=== PATIENT | female | born 1980 | race Caucasian/White ===

== ENCOUNTER → 2016-07-11 | Outpatient (CLI) | payer MEDICARE, OTHER ==
[2016-07-12 14:09] LABS: HCV Qualitative Result DETECTED (Not detected)
== END | disposition home or self-care (01) ==
LOC: LABWHC1 13:52
PROVIDERS: ATTEND Physician Assistant
DX: B18.2 Chronic viral hepatitis C (principal)
CPT/HCPCS: 36415; 87522

== ENCOUNTER 2016-10-14 00:53 | Emergency (ER) | payer MEDICARE, OTHER ==
[2016-10-14 01:15] VITALS: BP 131/81; PULSE 89; RESP 20; TEMP 98.2
--- NOTE | 2016-10-14 02:04 | ED ---
General Adult HPI - General Chief complaint: Recheck/Abnormal Lab/Rx Stated complaint: med refill,heart condition Time Seen by Provider: 10/14/16 01:33 Source: patient, RN notes reviewed Mode of arrival: ambulatory Limitations: no limitations - History of Present Illness Initial comments: 36-year-old female presents to the emergency department with a chief complaint of needing medication refill of her Suboxone. Patient states that of her pills accidentally thrown away. Patient states that she does not get her refill until Saturday. Patient states that she is concerned about withdrawal symptoms. Patient denies any recent fever, chills, shortness of breath, chest pain, back pain, abdominal pain, nausea vomiting, numbness or tingling, dysuria or hematuria, constipation or diarrhea, headaches or visual changes, or any other current symptoms. - Related Data Home Medications Medication Instructions Recorded Confirmed Buprenorphine HCl/Naloxone HCl 1 tab PO TID 10/14/16 10/14/16 [Suboxone 8 mg-2 mg Sl Film] Allergies Allergy/AdvReac Type Severity Reaction Status Date / Time Iodinated Contrast Media - AdvReac Swelling Verified 10/14/16 01:16 Oral and [Iodinated Contrast Media - IV Dye] seafood AdvReac Swelling Uncoded 10/14/16 01:16 Review of Systems ROS Statement: Those systems with pertinent positive or pertinent negative responses have been documented in the HPI. ROS Other: All systems not noted in ROS Statement are negative. Past Medical History Past Medical History: Fibromyalgia, Rheumatoid Arthritis (RA) Additional Past Medical History / Comment(s): AAA History of Any Multi-Drug Resistant Organisms: None Reported Past Surgical History: Hysterectomy Past Psychological History: Depression Smoking Status: Current every day smoker Past Alcohol Use History: None Reported Past Drug Use History: None Reported General Exam Limitations: no limitations General appearance: alert, anxious Head exam: Present: atraumatic, normocephalic, normal inspection Respiratory exam: Present: normal lung sounds bilaterally. Absent: respiratory distress, wheezes, rales, rhonchi, stridor Cardiovascular Exam: Present: regular rate, normal rhythm, normal heart sounds. Absent: systolic murmur, diastolic murmur, rubs, gallop, clicks Neurological exam: Present: alert, oriented X3 Psychiatric exam: Present: normal affect, normal mood Skin exam: Present: warm, dry, intact, normal color. Absent: rash Course Vital Signs 10/14/16 01:13 Temperature 98.2 F Pulse Rate 89 Respiratory 20 Rate Blood Pressure 131/81 O2 Sat by Pulse 96 Oximetry Medical Decision Making - Medical Decision Making 36-year-old female presents emergency Department chief complaint of wanting a medication refill of her Suboxone. A maps report was done and is consistent with the patient's story of having refill earlier in the month however when reviewing old ER charts it does appear that about one year ago she did visit to different times for Suboxone withdrawals. This time we discussed that we do not carry Suboxone I cannot give her pills here. We discussed we do not feel this to the emergency department for outpatient feels. We discussed that she needs follow-up with her doctor. She was offered nausea medication as well as Catapres to help with her withdrawal symptoms. The patient proceeded to leave when she was informed that we would not be refilling her Suboxone without these prescriptions. Disposition Clinical Impression: Encounter for medication refill Disposition: HOME SELF-CARE Condition: Stable Instructions: Narcotic Pain Management (ED) Additional Instructions: Please use medication as discussed. Please follow up with family doctor if symptoms have not improved over the next two days. Please return to the emergency room if your symptoms increase or worsen or for any other concerns. Referrals: Nonstaff,Physician [Primary Care Provider] - 1-2 days Abisai Zarco MD [STAFF PHYSICIAN] - 1-2 days Time of Disposition: 02:04
== END 2016-10-14 02:05 | disposition home or self-care (01) ==
LOC: EC 00:53
DX: Z76.0 Encounter for issue of repeat prescription (principal); F17.200 Nicotine dependence, unspecified, uncomplicated; Z79.891 Long term (current) use of opiate analgesic; Z91.013 Allergy to seafood; Z91.041 Radiographic dye allergy status
CPT/HCPCS: 99283

== ENCOUNTER 2017-02-16 21:09 | Emergency (ER) | payer MEDICARE, OTHER ==
[2017-02-16 21:16] VITALS: TEMP 97.9
[2017-02-16] MEDS ORDERED: ONDANSETRON 4 MG/2 ML VIAL IVP STA (21:19)
[2017-02-16] MEDS ORDERED: SODIUM CHLORIDE 0.9% 1,000 ML IV STA ×2 (21:19)
[2017-02-16] MEDS ORDERED: RX INFO: IV CONTRAST WAS GIVEN 1 EACH MISC MISCELLANE PRN ×2 (21:19→21:22)
[2017-02-16] MEDS ORDERED: MORPHINE SULFATE 4 MG/ML SYRINGE IV STA (21:19)
--- NOTE | 2017-02-16 21:22 | ED ---
General Adult HPI - General Chief complaint: Chest Pain Stated complaint: Chest Pain Time Seen by Provider: 02/16/17 21:18 Source: patient, RN notes reviewed, old records reviewed Mode of arrival: ambulatory Limitations: no limitations - History of Present Illness Initial comments: This is a 36-year-old female here for bowel pain, severe bowel pain, history of AAA, lays on her monitor at this time. Patient also complains of thoracic chest pain, history of thoracic abdominal aortic aneurysm per patient with dissection. History of significant arterial disease. Insulin. Patient's pain started getting worse. No fevers cough congestion or shortness of breath no recent change in medications. Patient is very anxious regarding this. - Related Data Home Medications Medication Instructions Recorded Confirmed buPROPion [Wellbutrin] 300 mg PO DAILY 02/16/17 02/16/17 Allergies Allergy/AdvReac Type Severity Reaction Status Date / Time Iodinated Contrast- Oral and AdvReac Swelling Verified 02/16/17 21:16 IV Dye [Iodinated Contrast Media - IV Dye] seafood AdvReac Swelling Uncoded 02/16/17 21:16 Review of Systems ROS Statement: Those systems with pertinent positive or pertinent negative responses have been documented in the HPI. ROS Other: All systems not noted in ROS Statement are negative. Past Medical History Past Medical History: Fibromyalgia, Rheumatoid Arthritis (RA) Additional Past Medical History / Comment(s): AAA History of Any Multi-Drug Resistant Organisms: None Reported Past Surgical History: Hysterectomy Past Psychological History: Depression Smoking Status: Current every day smoker Past Alcohol Use History: None Reported Past Drug Use History: None Reported General Exam Limitations: no limitations General appearance: alert, in no apparent distress, anxious Head exam: Present: atraumatic, normocephalic, normal inspection Eye exam: Present: normal appearance, PERRL, EOMI. Absent: scleral icterus, conjunctival injection, periorbital swelling ENT exam: Present: normal exam, mucous membranes moist Neck exam: Present: normal inspection. Absent: tenderness, meningismus, lymphadenopathy Respiratory exam: Present: normal lung sounds bilaterally. Absent: respiratory distress, wheezes, rales, rhonchi, stridor Cardiovascular Exam: Present: regular rate, normal rhythm, normal heart sounds. Absent: systolic murmur, diastolic murmur, rubs, gallop, clicks GI/Abdominal exam: Present: soft, normal bowel sounds. Absent: distended, tenderness, guarding, rebound, rigid Extremities exam: Present: normal inspection, full ROM, normal capillary refill. Absent: tenderness, pedal edema, joint swelling, calf tenderness Back exam: Present: normal inspection Neurological exam: Present: alert, oriented X3, CN II-XII intact Psychiatric exam: Present: normal affect, normal mood Skin exam: Present: warm, dry, intact, normal color. Absent: rash Course Vital Signs 02/16/17 02/16/17 21:12 22:29 Temperature 97.9 F Pulse Rate 80 94 Respiratory 22 16 Rate Blood Pressure 148/78 126/73 O2 Sat by Pulse 100 100 Oximetry - Reevaluation(s) Reevaluation #1: 02/16/17 23:47 Medical medical history as reviewed EKG Findings - EKG Comments: EKG Findings:: EKG shows normal sinus at a rate of 83, HI 158, QRS 86, [id number] Medical Decision Making - Medical Decision Making 30 mL by mouth chest pain, history of dissection, CTA negative chest pain or dissection, patient has no pain control. Patient can be discharged - Lab Data Result diagrams: 02/16/17 21:39 02/16/17 21:39 Lab Results 02/16/17 02/16/17 02/16/17 Range/Units 21:39 21:39 21:39 WBC 6.1 (3.8-10.6) k/uL RBC 4.89 (3.80-5.40) m/uL Hgb 15.1 (11.4-16.0) gm/dL Hct 43.9 (34.0-46.0) % MCV 89.9 (80.0-100.0) fL MCH 30.8 (25.0-35.0) pg MCHC 34.3 (31.0-37.0) g/dL RDW 13.5 (11.5-15.5) % Plt Count 236 (150-450) k/uL Neutrophils % 51 % Lymphocytes % 39 % Monocytes % 6 % Eosinophils % 2 % Basophils % 1 % Neutrophils # 3.1 (1.3-7.7) k/uL Lymphocytes # 2.3 (1.0-4.8) k/uL Monocytes # 0.4 (0-1.0) k/uL Eosinophils # 0.1 (0-0.7) k/uL Basophils # 0.0 (0-0.2) k/uL PT 10.2 (9.0-12.0) sec INR 1.0 (<1.2) APTT 19.2 L (22.0-30.0) sec Sodium 139 (137-145) mmol/L Potassium 4.3 (3.5-5.1) mmol/L Chloride 105 (98-107) mmol/L Carbon Dioxide 24 (22-30) mmol/L Anion Gap 10 mmol/L BUN 14 (7-17) mg/dL Creatinine 0.80 (0.52-1.04) mg/dL Est GFR (MDRD) Af Amer >60 (>60 ml/min/1.73 sqM) Est GFR (MDRD) Non-Af >60 (>60 ml/min/1.73 sqM) Glucose 94 (74-99) mg/dL Calcium 9.5 (8.4-10.2) mg/dL Phosphorus 3.5 (2.5-4.5) mg/dL Magnesium 2.1 (1.6-2.3) mg/dL Total Bilirubin 0.7 (0.2-1.3) mg/dL AST 27 (14-36) U/L ALT 41 (9-52) U/L Alkaline Phosphatase 74 (38-126) U/L Total Creatine Kinase (30-135) U/L CK-MB (CK-2) (0.0-2.4) ng/mL CK-MB (CK-2) Rel Index Troponin I (0.000-0.034) ng/mL Total Protein 7.3 (6.3-8.2) g/dL Albumin 4.4 (3.5-5.0) g/dL Lipase 33 (23-300) U/L 02/16/17 02/16/17 Range/Units 21:39 21:39 WBC (3.8-10.6) k/uL RBC (3.80-5.40) m/uL Hgb (11.4-16.0) gm/dL Hct (34.0-46.0) % MCV (80.0-100.0) fL MCH (25.0-35.0) pg MCHC (31.0-37.0) g/dL RDW (11.5-15.5) % Plt Count (150-450) k/uL Neutrophils % % Lymphocytes % % Monocytes % % Eosinophils % % Basophils % % Neutrophils # (1.3-7.7) k/uL Lymphocytes # (1.0-4.8) k/uL Monocytes # (0-1.0) k/uL Eosinophils # (0-0.7) k/uL Basophils # (0-0.2) k/uL PT (9.0-12.0) sec INR (<1.2) APTT (22.0-30.0) sec Sodium (137-145) mmol/L Potassium (3.5-5.1) mmol/L Chloride (98-107) mmol/L Carbon Dioxide (22-30) mmol/L Anion Gap mmol/L BUN (7-17) mg/dL Creatinine (0.52-1.04) mg/dL Est GFR (MDRD) Af Amer (>60 ml/min/1.73 sqM) Est GFR (MDRD) Non-Af (>60 ml/min/1.73 sqM) Glucose (74-99) mg/dL Calcium (8.4-10.2) mg/dL Phosphorus (2.5-4.5) mg/dL Magnesium (1.6-2.3) mg/dL Total Bilirubin (0.2-1.3) mg/dL AST (14-36) U/L ALT (9-52) U/L Alkaline Phosphatase (38-126) U/L Total Creatine Kinase 65 (30-135) U/L CK-MB (CK-2) 1.4 (0.0-2.4) ng/mL CK-MB (CK-2) Rel Index 2.2 Troponin I <0.012 (0.000-0.034) ng/mL Total Protein (6.3-8.2) g/dL Albumin (3.5-5.0) g/dL Lipase (23-300) U/L - Radiology Data Radiology results: report reviewed (CTA angiogram negative for new dissection or change), image reviewed Disposition Clinical Impression: Chest pain Disposition: HOME SELF-CARE Condition: Good Instructions: Chest Pain (ED) Referrals: Nonstaff,Physician [Primary Care Provider] - 1-2 days
[2017-02-16 21:53] LABS: Basophils % (A) 1 %; CH 32.2; CHCM 35.9; Eosinophils # (A) 0.1 k/uL (0-0.7); Eosinophils % (A) 2 %; HCT 43.9 % (34.0-46.0); HDW 2.54; HGB 15.1 gm/dL (11.4-16.0); Luc # (Auto) 0.16; Luc % (Auto) 3; Lymphocytes # (A) 2.3 k/uL (1.0-4.8); Lymphocytes % (A) 39 %; MCH 30.8 pg (25.0-35.0); MCHC 34.3 g/dL (31.0-37.0); MCV 89.9 fL (80.0-100.0); Mean Platelet Volume 7.5; Monocytes # (A) 0.4 k/uL (0-1.0); Monocytes % (A) 6 %; Neutrophils # (A) 3.1 k/uL (1.3-7.7); Neutrophils % (A) 51 %; RBC 4.89 m/uL (3.80-5.40); RDW 13.5 % (11.5-15.5); WBC 6.1 k/uL (3.8-10.6)
[2017-02-16] MEDS ORDERED: methylPREDNISolone SOD SUCCI 125 MG/2 ML VIAL IV STA (21:54)
[2017-02-16] MEDS ORDERED: FAMOTIDINE 20 MG/2 ML VIAL IV STA (21:54)
[2017-02-16] MEDS ORDERED: diphenhydrAMINE 50 MG/ML 1 ML VIAL IVP STA ×2 (21:54→22:19)
[2017-02-16 22:02] LABS: ALT 41 U/L (9-52); AST 27 U/L (14-36); Alkaline Phosphatase 74 U/L (38-126); Anion Gap 10 mmol/L; Blood Urea Nitrogen 14 mg/dL (7-17); Calcium 9.5 mg/dL (8.4-10.2); Carbon Dioxide 24 mmol/L (22-30); Chloride 105 mmol/L (98-107); Glucose 94 mg/dL (74-99); Magnesium 2.1 mg/dL (1.6-2.3); Non-African American GFR(MDRD) >60 (>60 ml/min/1.73 sqM); Phosphorous 3.5 mg/dL (2.5-4.5); Potassium 4.3 mmol/L (3.5-5.1); Sodium 139 mmol/L (137-145); Total Bilirubin 0.7 mg/dL (0.2-1.3); Total Protein 7.3 g/dL (6.3-8.2)
[2017-02-16] MEDS ORDERED: HYDROmorphone 1 MG/ML 1 ML SYRINGE IVP STA ×2 (22:19→23:53)
[2017-02-16] MEDS ORDERED: LORazepam 2 MG/ML SYRINGE IV STA (22:19)
[2017-02-16 22:20] LABS: Prothrombin Time 10.2 sec (9.0-12.0)
[2017-02-16 22:29] LABS: Partial Thromboplastin Time 19.2 sec (22.0-30.0)
[2017-02-16 22:30] VITALS: RESP 16
[2017-02-16 22:49] LABS: Creatine Kinase MB 1.4 ng/mL (0.0-2.4)
--- NOTE | 2017-02-16 23:41 | CT ---
EXAM: CT Angiography Chest With Intravenous Contrast CT Angiography Abdomen With Intravenous Contrast CLINICAL HISTORY: Pain TECHNIQUE: Axial computed tomographic angiography images of the chest and abdomen with intravenous contrast using CT angiography protocol. CTDI is 9.3, 9. 0, 165.7 mGy and DLP is 1056.6 mGy-cm. This CT exam was performed using one or more of the following dose reduction techniques: automated exposure control, adjustment of the mA and/or kV according to patient size, and/or use of iterative reconstruction technique. MIP reconstructed images were created and reviewed. COMPARISON: 05/14/2016 FINDINGS: VASCULATURE: Aorta: Stable aneurysmal dilatation of the descending thoracic aorta, measuring up to 3.9 cm (6-41). Stable [place] type B thoracic aortic dissection arising from the distal thoracic aorta at the level of the T10- T11 intervertebral disc. Stable thoracic aortic dissection with opacification of the true and false lumens. Pulmonary arteries: Unremarkable as visualized. No pulmonary embolism is identified. Great vessels of aortic arch: No acute findings. No dissection. No occlusion or significant stenosis. Celiac trunk and mesenteric arteries: No acute findings. No occlusion or significant stenosis. Renal arteries: No acute findings. No occlusion or significant stenosis. Iliac arteries: Celiac, superior mesenteric, inferior mesenteric, bilateral renal, and bilateral common iliac arteries are patent. No occlusion or significant stenosis. CHEST: Lungs: Unremarkable. No mass. No consolidation. Pleural space: Unremarkable. No significant effusion. No pneumothorax. Heart: Unremarkable. No cardiomegaly. No significant pericardial effusion. ABDOMEN: Liver: Unremarkable. No mass. Gallbladder and bile ducts: Unremarkable. No calcified stones. No ductal dilation. Pancreas: Unremarkable. No ductal dilation. Spleen: Unremarkable. No splenomegaly. Adrenals: Unremarkable. Kidneys and ureters: Unremarkable. Stomach and bowel: Unremarkable. No obstruction. The appendix is not identified. Intraperitoneal space: Unremarkable. No significant fluid collection. No free air. CHEST and ABDOMEN: Bones/joints: No acute fracture. Soft tissues: Small fat-containing periumbilical hernia. Lymph nodes: Unremarkable. No enlarged lymph nodes. IMPRESSION: Stable aortic aneurysm or dissection. No acute CT findings to account for the patient's pain.
[2017-02-16] MEDS ORDERED: DIAZEPAM 5 MG/ML 2 ML SYRINGE IVP STA (23:53)
[2017-02-17 00:07] VITALS: BP 143/96; PULSE 90
== END 2017-02-17 00:40 | disposition home or self-care (01) ==
LOC: EC 21:09
DX: R07.89 Other chest pain (principal); I71.4 Abdominal aortic aneurysm, without rupture; F32.9 Major depressive disorder, single episode, unspecified; F41.9 Anxiety disorder, unspecified; F17.200 Nicotine dependence, unspecified, uncomplicated; Z79.899 Other long term (current) drug therapy; Z91.041 Radiographic dye allergy status; Z91.013 Allergy to seafood
CPT/HCPCS: 36415; 93005; 80053; 82550; 82553; 83690; 83735; 84100; 84484; 85025; 85610; 85730; 75635; 71275; 99285; 96374; 96375 ×7; 96376; 96361 ×2; J2060; J2270; J1200; J2930; J3360; Q9967; J2405; J1170 ×2

== ENCOUNTER → 2017-07-09 | Outpatient (CLI) | payer MEDICARE, OTHER ==
[2017-07-10 05:43] LABS: Herpes simplex I and/or II IgM 0.19 INDEX (<=0.90); Herpes simplex IgG I Ab <0.01 (< or = 0.90); Herpes simplex IgG II Ab 0.09 (< or = 0.90)
== END | disposition home or self-care (01) ==
LOC: LABWHC1 16:34
PROVIDERS: ATTEND Family Medicine
DX: N76.0 Acute vaginitis (principal); B00.9 Herpesviral infection, unspecified
CPT/HCPCS: 36415; 86694; 86695; 86696

== ENCOUNTER 2018-05-28 13:33 | Emergency (ER) | payer MEDICARE, OTHER ==
[2018-05-28] MEDS ORDERED: SODIUM CHLORIDE 0.9% 1,000 ML IV STA (13:58)
[2018-05-28] MEDS ORDERED: FAMOTIDINE 20 MG/2 ML VIAL IV STA (14:00)
[2018-05-28] MEDS ORDERED: diphenhydrAMINE 50 MG/ML 1 ML VIAL IVP STA (14:05)
[2018-05-28] MEDS ORDERED: methylPREDNISolone SOD SUCCI 125 MG/2 ML VIAL IV STA (14:05)
--- NOTE | 2018-05-28 15:00 | ED ---
General Adult HPI - General Chief complaint: Abdominal Pain Stated complaint: FLU LIKE SYMPTOMS Source: patient, EMS, RN notes reviewed, old records reviewed Mode of arrival: EMS Limitations: no limitations - History of Present Illness Initial comments: 37-year-old female patient past medical history of rheumatoid arthritis, hepatitis C, abdominal aneurysm presents to ED with epigastric pain radiating to back. Patient states that this began this morning. Patient describes the pain as a pressure sensation. Patient also complains of nausea without emesis. Patient complains of dizziness. Patient denies chest pain shortness of breath. Patient denies dysuria. Patient denies all her symptoms. Systemic: Pt denies fatigue, myalgia, fever/chills, rash. Pt denies weakness, night sweats, weight loss. Neuro: Pt denies headache, visual disturbances, syncope or pre-syncope. HEENT: Pt denies ocular discharge or irritation, otalgia, rhinorrhea, pharyngitis or notable lymphadenopathy. Cardiopulmonary: Pt denies chest pain, SOB, heart palpitations, dyspnea on exertion. : Pt denies dysuria, burning w/ urination, frequency/urgency. Denies new onset urinary or bowel incontinence. MSK: Pt denies myalgia, loss of strength or function in extremities. Neuro: Pt denies new onset weakness, paresthesias. - Related Data Home Medications Medication Instructions Recorded Confirmed buPROPion [Wellbutrin] 300 mg PO DAILY 02/16/17 05/28/18 Ibuprofen [Motrin Ib] 400 mg PO Q6H PRN 05/28/18 05/28/18 Previous Rx's Medication Instructions Recorded Omeprazole 20 mg PO DAILY #20 capsule. 05/28/18 Ondansetron [Zofran] 4 mg PO Q8HR PRN #15 tab 05/28/18 Allergies Allergy/AdvReac Type Severity Reaction Status Date / Time Iodinated Contrast- Oral and AdvReac Swelling Verified 05/28/18 13:59 IV Dye [Iodinated Contrast Media - IV Dye] seafood AdvReac Swelling Uncoded 05/28/18 13:45 Review of Systems ROS Statement: Those systems with pertinent positive or pertinent negative responses have been documented in the HPI. ROS Other: All systems not noted in ROS Statement are negative. Past Medical History Past Medical History: Fibromyalgia, Rheumatoid Arthritis (RA) Additional Past Medical History / Comment(s): AAA History of Any Multi-Drug Resistant Organisms: None Reported Past Surgical History: Hysterectomy Past Psychological History: Depression Smoking Status: Current every day smoker Past Alcohol Use History: None Reported Past Drug Use History: None Reported General Exam - General Exam Comments Initial Comments: Constitutional: NAD, AOX3, Pt has pleasant affect. HEENT: NC/AT, trachea midline, neck supple, no lymphadenopathy. Posterior pharynx non erythematous, without exudates. External ears appear normal, without discharge. Mucous membranes moist. Eyes PERRLA, EOM intact. There is no scleral icterus. No pallor noted. Cardiopulmonary: RRR, no murmurs, rubs or gallops, no JVD noted. Lungs CTAB in anterior and posterior donovan. No peripheral edema. Abdominal exam: Abdomen soft and non-distended. Abdomen mildly tender to palpation epigastric region. No masses noted. Equal pulses.. Bowel sounds active in LLQ. No hepatosplenomegaly. No ecchymosis Neuro: CN II-XII grossly intact. No nuchal rigidity. MSK: No posterior calf tenderness bilaterally, homans sign negative bilaterally. Posterior tibialis, dorsalis and radial pulse +2 bilaterally - pulses equal. Sensation intact in upper and lower extremities. Full active ROM in upper and lower extremities, 5/5 strength. Limitations: no limitations Course Vital Signs 05/28/18 05/28/18 05/28/18 13:40 14:20 14:26 Temperature 99.2 F Pulse Rate 72 86 85 Respiratory 18 18 18 Rate Blood Pressure 139/70 139/70 120/71 O2 Sat by Pulse 99 98 Oximetry 05/28/18 05/28/18 05/28/18 14:27 14:40 15:00 Temperature Pulse Rate 104 H 76 75 Respiratory 18 18 18 Rate Blood Pressure 98/71 98/71 107/77 O2 Sat by Pulse 100 98 99 Oximetry 05/28/18 05/28/18 05/28/18 15:20 16:00 16:20 Temperature Pulse Rate 67 66 Respiratory 18 16 Rate Blood Pressure 129/95 101/67 111/67 O2 Sat by Pulse 99 96 Oximetry 05/28/18 18:22 Temperature 99.7 F H Pulse Rate 76 Respiratory 18 Rate Blood Pressure 101/64 O2 Sat by Pulse 99 Oximetry Medical Decision Making - Medical Decision Making 37-year-old female patient past medical history of rheumatoid arthritis, hepatitis C, abdominal aneurysm presents to ED with epigastric pain radiating to back. Patient states that this began this morning. Patient describes the pain as a pressure sensation. Patient also complains of nausea without emesis. Patient complains of dizziness. Patient denies all other symptoms. Vital signs stable upon presenting to ED. Physical exam revealed abdomen tender in epigastric region. No masses noted, no pulsatile mass. Equal pulses proximal and distal. Laboratory investigations revealed non-impressive CBC, CMP , coagulation studies. Troponin was negative, lactic acid was within normal limits. Patient had tubal ligation. Aorta CT displayed stable chronic descending thoracic abdominal aortic dissection, no acute change. Chest x-ray displayed no acute process. EKG not concerning for acute ischemia. Patient diagnosed gastritis. Patient treated with Omeprazole and Zofran. Patient to follow-up primary care provider in 1-2 days for continued evaluation. Pt given strict return precautions. Patient to return to ED if any new signs or symptoms develop. Case discussed in depth with Dr. Crowder. - Lab Data Result diagrams: 05/28/18 15:02 05/28/18 15:02 Lab Results 05/28/18 05/28/18 05/28/18 Range/Units 15:02 15:02 15:02 WBC 5.5 (3.8-10.6) k/uL RBC 4.71 (3.80-5.40) m/uL Hgb 13.9 (11.4-16.0) gm/dL Hct 41.9 (34.0-46.0) % MCV 89.0 (80.0-100.0) fL MCH 29.6 (25.0-35.0) pg MCHC 33.2 (31.0-37.0) g/dL RDW 12.5 (11.5-15.5) % Plt Count 240 (150-450) k/uL Neutrophils % 55 % Lymphocytes % 31 % Monocytes % 6 % Eosinophils % 5 % Basophils % 1 % Neutrophils # 3.0 (1.3-7.7) k/uL Lymphocytes # 1.7 (1.0-4.8) k/uL Monocytes # 0.3 (0-1.0) k/uL Eosinophils # 0.3 (0-0.7) k/uL Basophils # 0.0 (0-0.2) k/uL PT 9.9 (9.0-12.0) sec INR 0.9 (<1.2) APTT 19.1 L (22.0-30.0) sec Sodium 138 (137-145) mmol/L Potassium 4.3 (3.5-5.1) mmol/L Chloride 107 (98-107) mmol/L Carbon Dioxide 26 (22-30) mmol/L Anion Gap 5 mmol/L BUN 15 (7-17) mg/dL Creatinine 0.71 (0.52-1.04) mg/dL Est GFR (CKD-EPI)AfAm >90 (>60 ml/min/1.73 sqM) Est GFR (CKD-EPI)NonAf >90 (>60 ml/min/1.73 sqM) Glucose 87 (74-99) mg/dL Plasma Lactic Acid Bertin (0.7-2.0) mmol/L Calcium 9.0 (8.4-10.2) mg/dL Total Bilirubin 0.6 (0.2-1.3) mg/dL AST 25 (14-36) U/L ALT 28 (9-52) U/L Alkaline Phosphatase 55 (38-126) U/L Troponin I (0.000-0.034) ng/mL Total Protein 6.5 (6.3-8.2) g/dL Albumin 3.6 (3.5-5.0) g/dL Amylase 31 (30-110) U/L Lipase 30 (23-300) U/L 05/28/18 05/28/18 Range/Units 15:02 16:12 WBC (3.8-10.6) k/uL RBC (3.80-5.40) m/uL Hgb (11.4-16.0) gm/dL Hct (34.0-46.0) % MCV (80.0-100.0) fL MCH (25.0-35.0) pg MCHC (31.0-37.0) g/dL RDW (11.5-15.5) % Plt Count (150-450) k/uL Neutrophils % % Lymphocytes % % Monocytes % % Eosinophils % % Basophils % % Neutrophils # (1.3-7.7) k/uL Lymphocytes # (1.0-4.8) k/uL Monocytes # (0-1.0) k/uL Eosinophils # (0-0.7) k/uL Basophils # (0-0.2) k/uL PT (9.0-12.0) sec INR (<1.2) APTT (22.0-30.0) sec Sodium (137-145) mmol/L Potassium (3.5-5.1) mmol/L Chloride (98-107) mmol/L Carbon Dioxide (22-30) mmol/L Anion Gap mmol/L BUN (7-17) mg/dL Creatinine (0.52-1.04) mg/dL Est GFR (CKD-EPI)AfAm (>60 ml/min/1.73 sqM) Est GFR (CKD-EPI)NonAf (>60 ml/min/1.73 sqM) Glucose (74-99) mg/dL Plasma Lactic Acid Bertin 0.7 (0.7-2.0) mmol/L Calcium (8.4-10.2) mg/dL Total Bilirubin (0.2-1.3) mg/dL AST (14-36) U/L ALT (9-52) U/L Alkaline Phosphatase (38-126) U/L Troponin I <0.012 (0.000-0.034) ng/mL Total Protein (6.3-8.2) g/dL Albumin (3.5-5.0) g/dL Amylase (30-110) U/L Lipase (23-300) U/L Disposition Clinical Impression: Gastritis Disposition: HOME SELF-CARE Condition: Good Instructions: Gastritis (ED) Additional Instructions: Patient to adhere to previously discussed treatment plan and will take medication(s) as directed. Patient to follow up with PCP in 1-2 days. Patient to return to ED if symptoms do not improve. Prescriptions: Omeprazole 20 mg PO DAILY #20 capsule. Ondansetron [Zofran] 4 mg PO Q8HR PRN #15 tab PRN Reason: Nausea Is patient prescribed a controlled substance at d/c from ED?: No Referrals: Nonstaff,Physician [Primary Care Provider] - 1-2 days Time of Disposition: 17:43 Decision Time: 17:44
[2018-05-28 15:14] LABS: Basophils % (A) 1 %; Eosinophils # (A) 0.3 k/uL (0-0.7); Eosinophils % (A) 5 %; HCT 41.9 % (34.0-46.0); HGB 13.9 gm/dL (11.4-16.0); Lymphocytes # (A) 1.7 k/uL (1.0-4.8); Lymphocytes % (A) 31 %; MCH 29.6 pg (25.0-35.0); MCHC 33.2 g/dL (31.0-37.0); Mean Platelet Volume 6.5; Monocytes # (A) 0.3 k/uL (0-1.0); Monocytes % (A) 6 %; Neutrophils % (A) 55 %; Platelet Count 240 k/uL (150-450); RBC 4.71 m/uL (3.80-5.40); RDW 12.5 % (11.5-15.5); WBC 5.5 k/uL (3.8-10.6)
[2018-05-28 15:25] LABS: ALT 28 U/L (9-52); AST 25 U/L (14-36); Albumin 3.6 g/dL (3.5-5.0); Alkaline Phosphatase 55 U/L (38-126); Amylase 31 U/L (30-110); Anion Gap 5 mmol/L; Blood Urea Nitrogen 15 mg/dL (7-17); Carbon Dioxide 26 mmol/L (22-30); Chloride 107 mmol/L (98-107); Glucose 87 mg/dL (74-99); Lipase 30 U/L (23-300); Potassium 4.3 mmol/L (3.5-5.1); Sodium 138 mmol/L (137-145); Total Bilirubin 0.6 mg/dL (0.2-1.3); Total Protein 6.5 g/dL (6.3-8.2)
[2018-05-28 15:29] LABS: INR 0.9 (<1.2); Prothrombin Time 9.9 sec (9.0-12.0)
[2018-05-28 15:30] LABS: Partial Thromboplastin Time 19.1 sec (22.0-30.0)
[2018-05-28] MEDS ORDERED: MORPHINE SULFATE 4 MG/ML SYRINGE IV STA (15:50)
[2018-05-28] MEDS ORDERED: ONDANSETRON 4 MG/2 ML VIAL IVP STA (15:51)
--- NOTE | 2018-05-28 16:06 | CT ---
EXAMINATION TYPE: CT angio thor/abd pel aorta DATE OF EXAM: 05/28/2018 COMPARISON: 02/16/2017 HISTORY: Mid abdominal pain, history of AAA. CT DLP: 2580.4 mGycm. Automated Exposure Control for Dose Reduction was Utilized. CONTRAST: CT scan of the thorax, abdomen and pelvis is performed without and with IV Contrast, patient injected with 100 mL of Isovue 370. FINDINGS: LUNGS: The lungs are grossly clear, there is no concerning parenchymal mass or nodule identified. T here is no pleural effusion or pneumothorax seen. The tracheobronchial tree is patent. MEDIASTINUM: The unenhanced images demonstrate no evidence of intramural hematoma. When measured in a similar location there is overall stable size of the descending thoracic aortic aneurysm measuring a pproximately 3.9 x 4.2 cm. Descending thoracic dissection begins just prior to the diaphragmatic hiat us. The false lumen appears larger and true lumen feeds the celiac, superior mesenteric, and right re nal arteries. False lumen is opacified feeding the left renal artery. Above the level of the renal ar teries the aneurysm some measures 3.2 cm, also similar to the prior. Vascular flow is maintained with in the celiac and SMA as well as of the DEANDRE. There no greater than 1 cm hilar or mediastinal lymph nodes. No pericardial effusion is seen. LIVER/GB: No significant abnormality is appreciated. No cholelithiasis. PANCREAS: No significant abnormality is seen. SPLEEN: The spleen is elongated in longitudinal dimension measuring 13.1 cm however is not enlarged i n craniocaudal dimension ADRENALS: No significant abnormality is seen. KIDNEYS: No significant abnormality is seen. BOWEL: There is a moderate amount retained colonic stool. No dilated large or small bowel. Appendix i s not clearly identified however no right lower quadrant fat stranding changes are seen. Appendix cou ld be surgically absent as there are surgical clips near the cecum. LYMPH NODES: No greater than 1cm abdominal or pelvic lymph nodes are appreciated. OSSEOUS STRUCTURES: No significant abnormality is seen. OTHER: Subcentimeter fat filled umbilical hernia is present. IMPRESSION: Stable chronic descending thoracic and abdominal aortic dissection terminating just befor e the aortoiliac bifurcation and stable thoracic and abdominal aortic aneurysm.
--- NOTE | 2018-05-28 16:40 | XR ---
EXAMINATION TYPE: XR chest 2V DATE OF EXAM: 05/28/2018 COMPARISON: 05/14/2016 HISTORY: Abdominal pain TECHNIQUE: Frontal and lateral views of the chest are obtained. FINDINGS: There is no heart failure nor confluent pneumonic infiltrate. Heart size is normal. Costop hrenic angles are fairly clear. There are chest leads. There are surgical clips over the mediastinum. IMPRESSION: No active cardiopulmonary disease. No change.
[2018-05-28 18:22] VITALS: BP 101/64; PULSE 76; RESP 18; TEMP 99.7
== END 2018-05-28 18:36 | disposition home or self-care (01) ==
LOC: EC 13:33
DX: K29.70 Gastritis, unspecified, without bleeding (principal); R42 Dizziness and giddiness; M06.9 Rheumatoid arthritis, unspecified; F32.9 Major depressive disorder, single episode, unspecified; F17.200 Nicotine dependence, unspecified, uncomplicated; Z79.899 Other long term (current) drug therapy; Z91.041 Radiographic dye allergy status; Z91.013 Allergy to seafood
CPT/HCPCS: 96375 ×5; 96361 ×2; 96374 ×2; 99285 ×2; 36415; 93005; 36569; 76937; 80053; 82150; 83605; 83690; 84484; 85025; 85610; 85730; 71046; 71275; 74174; J2270; J1200; J2930; J2405; Q9967

== ENCOUNTER → 2018-05-28 | Day surgery (SDC) | payer MEDICARE, OTHER | LOC: CATHCVL 11:59 | DX: Z45.2 Encounter for adjustment and management of vascular access device (principal) | CPT/HCPCS: 36569; 76937 ==

== ENCOUNTER 2018-06-24 17:21 | Emergency (ER) | payer MEDICARE, OTHER ==
[2018-06-24] MEDS ORDERED: ACETAMINOPHEN TAB 325 MG TAB PO STA (17:43)
[2018-06-24] MEDS ORDERED: diphenhydrAMINE 50 MG/ML 1 ML VIAL IVP STA (17:43)
[2018-06-24] MEDS ORDERED: SODIUM CHLORIDE 0.9% 1,000 ML IV STA (17:43)
[2018-06-24] MEDS ORDERED: MORPHINE SULFATE 2 MG/ML SYRINGE IVP STA (17:43)
[2018-06-24] MEDS ORDERED: ONDANSETRON 4 MG/2 ML VIAL IVP STA (17:43)
--- NOTE | 2018-06-24 17:47 | ED ---
Weakness HPI - General Chief complaint: Weakness Stated complaint: Weakness Time Seen by Provider: 06/24/18 17:31 Source: patient, RN notes reviewed Mode of arrival: EMS Limitations: no limitations - History of Present Illness Initial comments: This a 37-year-old female presents emergency department via EMS from [facility] chief complaint jaundice weakness. She states that she woke up states that she just generalized weakness focal weakness states that she just does not feel well. She states that she felt she just may be coming down with upper history infection. Patient also states that she's had sick contacts at home. Patient complains of mild headache and states that she's had a rash around her eyes the last day or so. She has been taking Benadryl for this. Patient denies any current chest pain, shortness breath, vomiting. She said some nausea no diarrhea. Patient has no dysuria no hematuria. Patient was seen at [facility] and was told that she either is having a stroke or bleeding of her brain because she had a headache. Patient again has no focal weakness denies any blurred vision. - Related Data Home Medications Medication Instructions Recorded Confirmed Ibuprofen [Motrin Ib] 400 mg PO Q6H PRN 05/28/18 06/24/18 Acetaminophen [Tylenol] 650 mg PO Q6H 06/24/18 06/24/18 Multivitamins, Thera [Multivitamin 1 tab PO DAILY 06/24/18 06/24/18 (formulary)] buPROPion HCL [Wellbutrin XL] 300 mg PO DAILY 06/24/18 06/24/18 Allergies Allergy/AdvReac Type Severity Reaction Status Date / Time Iodinated Contrast- Oral and AdvReac Swelling Verified 06/24/18 17:59 IV Dye [Iodinated Contrast Media - IV Dye] seafood AdvReac Swelling Uncoded 05/28/18 13:45 Review of Systems ROS Statement: Those systems with pertinent positive or pertinent negative responses have been documented in the HPI. ROS Other: All systems not noted in ROS Statement are negative. Past Medical History Past Medical History: Fibromyalgia, Rheumatoid Arthritis (RA) Additional Past Medical History / Comment(s): AAA History of Any Multi-Drug Resistant Organisms: None Reported Past Surgical History: Hysterectomy Past Psychological History: Depression Smoking Status: Current every day smoker Past Alcohol Use History: None Reported Past Drug Use History: None Reported General Exam Limitations: no limitations General appearance: alert, in no apparent distress Head exam: Present: atraumatic, normocephalic, normal inspection Eye exam: Present: normal appearance, PERRL, EOMI. Absent: scleral icterus, conjunctival injection, periorbital swelling ENT exam: Present: normal exam, normal oropharynx, mucous membranes moist, TM's normal bilaterally, normal external ear exam Neck exam: Present: normal inspection, full ROM. Absent: tenderness, meningismus, lymphadenopathy Respiratory exam: Present: normal lung sounds bilaterally. Absent: respiratory distress, wheezes, rales, rhonchi, stridor Cardiovascular Exam: Present: regular rate, normal rhythm, normal heart sounds. Absent: systolic murmur, diastolic murmur, rubs, gallop, clicks GI/Abdominal exam: Present: soft, normal bowel sounds. Absent: distended, tenderness, guarding, rebound, rigid Extremities exam: Present: normal inspection, full ROM, normal capillary refill. Absent: tenderness, pedal edema, joint swelling, calf tenderness Back exam: Present: normal inspection Neurological exam: Present: alert, oriented X3, CN II-XII intact, other (Finger to nose intact bilaterally without over shooting). Absent: motor sensory deficit Skin exam: Present: warm, dry, intact, normal color. Absent: rash Course Vital Signs 06/24/18 06/24/18 17:25 19:23 Temperature 98.7 F Pulse Rate 66 66 Respiratory 18 16 Rate Blood Pressure 114/66 113/70 O2 Sat by Pulse 100 99 Oximetry EKG Findings - EKG Comments: EKG Findings:: EKG performed at 18:37 normal sinus rhythm with rate of 64 HI 174 QRS 86 QTC is QTC 392/404 Medical Decision Making - Medical Decision Making 37-year-old female presented for vague multiple complaints but overall generalized was not feeling well. Patient had complete workup including CT, x- ray, EKG, lab work, urinalysis. There are no acute findings. Patient states she does feel improved at this time. Patient has no evidence of meningismus. Patient most has a viral illness and will follow-up with PCP return parameters were discussed. Patient and family updated and results. - Lab Data Result diagrams: 06/24/18 18:16 06/24/18 18:16 Lab Results 06/24/18 06/24/18 06/24/18 Range/Units 18:16 18:16 18:16 WBC 5.5 (3.8-10.6) k/uL RBC 4.72 (3.80-5.40) m/uL Hgb 14.1 (11.4-16.0) gm/dL Hct 41.8 (34.0-46.0) % MCV 88.6 (80.0-100.0) fL MCH 30.0 (25.0-35.0) pg MCHC 33.8 (31.0-37.0) g/dL RDW 12.7 (11.5-15.5) % Plt Count 251 (150-450) k/uL Neutrophils % 45 % Lymphocytes % 42 % Monocytes % 7 % Eosinophils % 4 % Basophils % 1 % Neutrophils # 2.5 (1.3-7.7) k/uL Lymphocytes # 2.3 (1.0-4.8) k/uL Monocytes # 0.4 (0-1.0) k/uL Eosinophils # 0.2 (0-0.7) k/uL Basophils # 0.0 (0-0.2) k/uL PT (9.0-12.0) sec INR (<1.2) APTT (22.0-30.0) sec Sodium 138 (137-145) mmol/L Potassium 4.5 (3.5-5.1) mmol/L Chloride 106 (98-107) mmol/L Carbon Dioxide 25 (22-30) mmol/L Anion Gap 7 mmol/L BUN 12 (7-17) mg/dL Creatinine 0.76 (0.52-1.04) mg/dL Est GFR (CKD-EPI)AfAm >90 (>60 ml/min/1.73 sqM) Est GFR (CKD-EPI)NonAf >90 (>60 ml/min/1.73 sqM) Glucose 89 (74-99) mg/dL Plasma Lactic Acid Bertin (0.7-2.0) mmol/L Calcium 9.1 (8.4-10.2) mg/dL Phosphorus 3.5 (2.5-4.5) mg/dL Magnesium 2.1 (1.6-2.3) mg/dL Total Bilirubin 0.7 (0.2-1.3) mg/dL AST 20 (14-36) U/L ALT 18 (9-52) U/L Alkaline Phosphatase 56 (38-126) U/L Total Creatine Kinase 32 (30-135) U/L CK-MB (CK-2) 0.5 (0.0-2.4) ng/mL CK-MB (CK-2) Rel Index 1.6 Troponin I <0.012 (0.000-0.034) ng/mL Total Protein 6.8 (6.3-8.2) g/dL Albumin 4.0 (3.5-5.0) g/dL Urine Color Urine Appearance (Clear) Urine pH (5.0-8.0) Ur Specific [place] (1.001-1.035) Urine Protein (Negative) Urine Glucose (UA) (Negative) Urine Ketones (Negative) Urine Blood (Negative) Urine Nitrite (Negative) Urine Bilirubin (Negative) Urine Urobilinogen (<2.0) mg/dL Ur Leukocyte Esterase (Negative) 06/24/18 06/24/18 06/24/18 Range/Units 18:16 18:16 18:16 WBC (3.8-10.6) k/uL RBC (3.80-5.40) m/uL Hgb (11.4-16.0) gm/dL Hct (34.0-46.0) % MCV (80.0-100.0) fL MCH (25.0-35.0) pg MCHC (31.0-37.0) g/dL RDW (11.5-15.5) % Plt Count (150-450) k/uL Neutrophils % % Lymphocytes % % Monocytes % % Eosinophils % % Basophils % % Neutrophils # (1.3-7.7) k/uL Lymphocytes # (1.0-4.8) k/uL Monocytes # (0-1.0) k/uL Eosinophils # (0-0.7) k/uL Basophils # (0-0.2) k/uL PT 10.2 (9.0-12.0) sec INR 0.9 (<1.2) APTT 23.1 (22.0-30.0) sec Sodium (137-145) mmol/L Potassium (3.5-5.1) mmol/L Chloride (98-107) mmol/L Carbon Dioxide (22-30) mmol/L Anion Gap mmol/L BUN (7-17) mg/dL Creatinine (0.52-1.04) mg/dL Est GFR (CKD-EPI)AfAm (>60 ml/min/1.73 sqM) Est GFR (CKD-EPI)NonAf (>60 ml/min/1.73 sqM) Glucose (74-99) mg/dL Plasma Lactic Acid Bertin 1.2 (0.7-2.0) mmol/L Calcium (8.4-10.2) mg/dL Phosphorus (2.5-4.5) mg/dL Magnesium (1.6-2.3) mg/dL Total Bilirubin (0.2-1.3) mg/dL AST (14-36) U/L ALT (9-52) U/L Alkaline Phosphatase (38-126) U/L Total Creatine Kinase (30-135) U/L CK-MB (CK-2) (0.0-2.4) ng/mL CK-MB (CK-2) Rel Index Troponin I (0.000-0.034) ng/mL Total Protein (6.3-8.2) g/dL Albumin (3.5-5.0) g/dL Urine Color Light Yellow Urine Appearance Clear (Clear) Urine pH 8.0 (5.0-8.0) Ur Specific [place] 1.009 (1.001-1.035) Urine Protein Negative (Negative) Urine Glucose (UA) Negative (Negative) Urine Ketones Negative (Negative) Urine Blood Negative (Negative) Urine Nitrite Negative (Negative) Urine Bilirubin Negative (Negative) Urine Urobilinogen <2.0 (<2.0) mg/dL Ur Leukocyte Esterase Negative (Negative) Disposition Clinical Impression: Headache, Viral syndrome Disposition: HOME SELF-CARE Condition: Stable Instructions: Viral Syndrome (ED) Additional Instructions: Please return to the Emergency Department if symptoms worsen or any other concerns. Is patient prescribed a controlled substance at d/c from ED?: No Referrals: None,Stated [Primary Care Provider] - 1-2 days Time of Disposition: 19:58
[2018-06-24 18:40] LABS: Appearance,Urine Clear (Clear); Bilirubin,Urine Negative (Negative); Blood,Urine Negative (Negative); Color,Urine Light Yellow; Glucose,Urine (UA) Negative (Negative); Ketones,Urine Negative (Negative); Leukocyte Esterase,Urine Negative (Negative); Nitrite,Urine Negative (Negative); Protein,Urine Negative (Negative); Specific Gravity,Urine 1.009 (1.001-1.035); Urobilinogen,Urine <2.0 mg/dL (<2.0)
[2018-06-24 18:47] LABS: INR 0.9 (<1.2); Partial Thromboplastin Time 23.1 sec (22.0-30.0); Prothrombin Time 10.2 sec (9.0-12.0)
[2018-06-24 18:53] LABS: Basophils % (A) 1 %; Eosinophils # (A) 0.2 k/uL (0-0.7); Eosinophils % (A) 4 %; HCT 41.8 % (34.0-46.0); HGB 14.1 gm/dL (11.4-16.0); Lymphocytes # (A) 2.3 k/uL (1.0-4.8); Lymphocytes % (A) 42 %; MCHC 33.8 g/dL (31.0-37.0); MCV 88.6 fL (80.0-100.0); Mean Platelet Volume 6.5; Monocytes # (A) 0.4 k/uL (0-1.0); Monocytes % (A) 7 %; Neutrophils # (A) 2.5 k/uL (1.3-7.7); Neutrophils % (A) 45 %; Platelet Count 251 k/uL (150-450); RBC 4.72 m/uL (3.80-5.40); RDW 12.7 % (11.5-15.5); WBC 5.5 k/uL (3.8-10.6)
[2018-06-24 18:55] LABS: ALT 18 U/L (9-52); AST 20 U/L (14-36); Alkaline Phosphatase 56 U/L (38-126); Anion Gap 7 mmol/L; Blood Urea Nitrogen 12 mg/dL (7-17); Calcium 9.1 mg/dL (8.4-10.2); Carbon Dioxide 25 mmol/L (22-30); Chloride 106 mmol/L (98-107); Glucose 89 mg/dL (74-99); Magnesium 2.1 mg/dL (1.6-2.3); Phosphorus 3.5 mg/dL (2.5-4.5); Potassium 4.5 mmol/L (3.5-5.1); Sodium 138 mmol/L (137-145); Total Bilirubin 0.7 mg/dL (0.2-1.3); Total Protein 6.8 g/dL (6.3-8.2)
[2018-06-24 19:06] LABS: Creatine Kinase 32 U/L (30-135)
[2018-06-24 19:19] LABS: Creatine Kinase MB 0.5 ng/mL (0.0-2.4); Troponin I <0.012 ng/mL (0.000-0.034)
--- NOTE | 2018-06-24 19:19 | CT ---
EXAMINATION: CT brain wo con DATE AND TIME: 06/24/2018 7:02 PM CLINICAL INDICATION: PHH; weakness TECHNIQUE: Standard departmental protocol.; 1098.4; COMPARISON: CT 07/29/2011 FINDINGS: The calvarium is intact. There is no intracranial hemorrhage. There is no definite new attenuation defect. Previously seen 1.7 cm mean diameter left parasagittal hyperdense extra-axial mass with central calci fications is redemonstrated, likely meningioma. The paranasal sinuses, middle ear cavities, and mastoid sinus air cells are clear. The orbits are unremarkable. IMPRESSION: 1. NO ACUTE PROCESS. 2. Stable 1.7 cm presumed meningioma high over the left paramidline convexity.
--- NOTE | 2018-06-24 20:07 | XR ---
EXAMINATION: XR chest 2V DATE AND TIME: 06/24/2018 6:58 PM CLINICAL INDICATION: PHH; Weakness TECHNIQUE: Departmental protocol COMPARISON: 05/28/2018 FINDINGS: The lungs are clear. The pleural spaces are negative. The cardiac silhouette is not enlarged. The remainder of the mediastinal silhouette is unremarkable. The skeletal structures and soft tissues are negative for acute findings. IMPRESSION: NO ACUTE PROCESS.
[2018-06-24 20:12] VITALS: BP 107/66; PULSE 64; RESP 20; TEMP 98.6
== END 2018-06-24 20:15 | disposition home or self-care (01) ==
LOC: EC 17:21
DX: B34.9 Viral infection, unspecified (principal); R53.1 Weakness; F32.9 Major depressive disorder, single episode, unspecified; F17.200 Nicotine dependence, unspecified, uncomplicated; Z79.899 Other long term (current) drug therapy; Z91.013 Allergy to seafood; Z91.041 Radiographic dye allergy status
CPT/HCPCS: 36415; 93005; 80053; 82550; 82553; 83605; 83735; 84100; 84484; 85025; 85610; 85730; 81003; 71046; 70450; 99285; 96374; 96375 ×2; 96361; J1200; J2405; J2270